=== PATIENT | male | born 1980 | race Caucasian/White ===

== ENCOUNTER 2024-01-08 18:30 | Emergency (ER) | payer OTHER ==
[~2024-01-08] VITALS: Ht 182.9 cm; Wt 72.6 kg
[2024-01-08 18:44] VITALS: BP_SYST 133; PULSE 66; RESP 18; TEMP 98.8; O2SAT 99
[2024-01-08] MEDS: ALPRAZolam 0.25 MG TABLET PO ONE (18:57)
[2024-01-08] MEDS ORDERED: ALPR0.5T PO (19:51)
[2024-01-08 20:05] VITALS: BP_SYST 124; PULSE 77; RESP 18; TEMP 99; O2SAT 96
== END 2024-01-08 20:05 | disposition home or self-care (01) ==
LOC: SED 18:30
DX: F41.9 Anxiety disorder, unspecified (principal)
CPT/HCPCS: 99283